=== PATIENT | female | born 1995 | race Hispanic/Latino ===

== ENCOUNTER 2019-01-26 01:42 | Emergency (ER) | payer OTHER ==
[~2019-01-26] VITALS: Ht 175.3 cm; Wt 80.7 kg
[2019-01-26 02:32] LABS: BASO % 0.3 % (0.0-1.0); EOS % 0.1 % (0.0-3.0); HEMATOCRIT 33.8 % (36.0-47.0); HEMOGLOBIN 11.4 g/dl (12.0-15.5); LYMPH % 6.7 % (24.0-44.0); MEAN CORPUSCULAR HGB CONC 33.7 g/dl (32.0-36.5); MONO # 0.4 10^3/uL (0.0-0.8); MONO % 2.7 % (0.0-5.0); NEUTROPHILS # 13.1 10^3/uL (1.8-7.7); NEUTROPHILS % 89.9 % (36.0-66.0); PLATELET COUNT, AUTOMATED 277 10^3/uL (150-450); RED BLOOD COUNT 3.93 10^6/uL (4.00-5.40); WHITE BLOOD COUNT 14.6 10^3/uL (4.0-10.0)
[2019-01-26 02:57] LABS: ALBUMIN 3.9 GM/DL (3.2-5.2); ALT/SGPT 17 U/L (12-78); BILIRUBIN,DIRECT < 0.1 MG/DL (0.0-0.2); BILIRUBIN,TOTAL 0.3 MG/DL (0.2-1.0); BLOOD UREA NITROGEN 13 MG/DL (7-18); CALCIUM LEVEL 8.7 MG/DL (8.5-10.1); CARBON DIOXIDE LEVEL 22 MEQ/L (21-32); CHLORIDE LEVEL 107 MEQ/L (98-107); CREATININE FOR GFR 0.72 MG/DL (0.55-1.30); GLOMERULAR FILTRATION RATE > 60.0 (>60); GLUCOSE, FASTING 142 MG/DL (70-100); LIPASE 133 U/L (73-393); SODIUM LEVEL 138 MEQ/L (136-145); TOTAL PROTEIN 7.6 GM/DL (6.4-8.2)
[2019-01-26 03:20] LABS: HCG, SERUM QUALITATIVE POSITIVE (NEGATIVE)
[2019-01-26] MEDS: MORPHINE 4 MG/ML 1ML VIAL/SYRINGE (J2270) IV PRN ×2 (03:28→03:59)
[2019-01-26] MEDS ORDERED: ONDANSETRON 4MG/2ML VIAL (J2405) IV ONE (03:30)
[2019-01-26 04:05] LABS: HCG, SERUM QUANTITATIVE 365 MIU/ML
--- NOTE | 2019-01-26 07:28 | REPVR ---
EXAM: US Duplex Artery or Vein of the Abdominal and/or Reproductive Organs, Limited Ovaries EXAM DATE/TIME: 01/26/2019 5:13 AM CLINICAL HISTORY: 23 years old, female; complicated by abdominal or pelvic pain; Right upper quadrant; First trimester; Gestational age or lmp: 4wks; ; Additional info: Right sided abd pain, pos TECHNIQUE: Imaging protocol: Real-time duplex ultrasound scan of the arterial or venous flow with victoria scale, color Doppler flow and spectral waveform analysis. Limited duplex exam focused on the ovaries. Duplex exam was performed to evaluate for ovarian torsion or mass. COMPARISON: GALLBLADDER US 01/26/2019 4:45 AM FINDINGS: Right adnexa: Normal duplex of the ovary. Normal Doppler waveforms and color flow. RI 0.53. No evidence of ovarian torsion. Left adnexa: Normal duplex of the ovary. Normal Doppler waveforms and color flow. RI 0.59. No evidence of ovarian torsion. IMPRESSION: Normal duplex of the ovaries. No evidence of ovarian torsion. EXAM: US First Trimester, Transabdominal and US , Transvaginal EXAM DATE/TIME: 01/26/2019 5:13 AM CLINICAL HISTORY: 23 years old, female; complicated by abdominal or pelvic pain; Right upper quadrant; First trimester; Gestational age or lmp: 4wks; ; Additional info: Right sided abd pain, pos TECHNIQUE: Imaging protocol: Real-time transabdominal obstetrical ultrasound of the maternal pelvis and a first trimester , less than 14 weeks 0 days, with image documentation. Transvaginal imaging was used for better evaluation of the fetus and adnexa. COMPARISON: GALLBLADDER US 01/26/2019 4:45 AM FINDINGS: GESTATION: Gestation: No evidence of intrauterine . MATERNAL: Uterus: The uterus is normal in size, shape and echotexture measuring 8.8 x 5.4 x 7.4 cm. The endometrium demonstrates decidual reaction measuring 2.2 cm in thickness. Cervix: Unremarkable. Right adnexa: The right ovary measures 4.5 x 2.8 x 2.7 cm with a possible corpus luteum as well as few small follicles. There is vascular flow present within the right ovary. No adnexal masses. Left adnexa: The left ovary measures 3.0 x 2.3 x 1.8 cm and is unremarkable in appearance containing a few small follicles. There is vascular flow present within the left ovary. No adnexal masses. Intraperitoneal: Trace free fluid which may be physiologic. IMPRESSION: 1. No evidence of IUP. Differential considerations include very early IUP which is not yet seen sonographically or failed . Ectopic cannot be entirely excluded, however, no adnexal masses are identified. Recommend clinical correlation as well as correlation with serial beta hCG and short term followup ultrasound. 2. Trace free fluid within the cul-de-sac. Findings were discussed with Dr Burns at 01/26/2019 7:17 AM EDT. Electronically signed by: Mukesh Buckner On 01/26/2019 07:27:13 AM
--- NOTE | 2019-01-26 07:36 | REPVR ---
EXAM: US Abdomen Limited, Right Upper Quadrant EXAM DATE/TIME: 01/26/2019 5:13 AM CLINICAL HISTORY: 23 years old, female; Abdominal pain; Acute; ; Additional info: Ruq abd pain TECHNIQUE: Imaging protocol: Real-time ultrasound of the abdomen with image documentation. Examination was focused on the right upper quadrant. COMPARISON: No relevant prior studies available. FINDINGS: Liver: Normal. No masses. Gallbladder: The gallbladder is distended measuring 12.2 x 3.5 cm. There are multiple gallstones within the gallbladder. No evidence of gallbladder wall thickening or pericholecystic fluid. The patient is reportedly tender over the gallbladder. Common bile duct: Bile ducts are normal in caliber. CBD 4.2 mm. On image 61, there is a questionable echogenic focus within the distal common bile duct which may represent choledocholithiasis. Pancreas: Visualized pancreas is unremarkable. Right kidney: The right kidney measures 10.6 cm in length and is unremarkable. Intraperitoneal space: No evidence of free fluid. IMPRESSION: 1. Gallbladder distention with evidence of cholelithiasis. Reported tenderness over the gallbladder. No significant gallbladder wall thickening. 2. No evidence of biliary duct dilatation, however, there is a questionable echogenic focus within the distal CBD which may represent choledocholithiasis. Findings were discussed with Dr Burns at 01/26/2019 7:17 AM EDT. Electronically signed by: Mukesh Buckner On 01/26/2019 07:36:15 AM
[2019-01-26 08:21] LABS: BASO % 0.1 % (0.0-1.0); HEMATOCRIT 33.7 % (36.0-47.0); HEMOGLOBIN 11.6 g/dl (12.0-15.5); LYMPH # 0.6 10^3/uL (1.5-6.5); LYMPH % 4.8 % (24.0-44.0); MEAN CORPUSCULAR HEMOGLOBIN 29.4 pg (27.0-33.0); MEAN CORPUSCULAR HGB CONC 34.4 g/dl (32.0-36.5); MEAN CORPUSCULAR VOLUME 85.3 fl (80.0-96.0); MONO # 0.3 10^3/uL (0.0-0.8); MONO % 2.3 % (0.0-5.0); NEUTROPHILS % 92.4 % (36.0-66.0); PLATELET COUNT, AUTOMATED 291 10^3/uL (150-450); RED BLOOD COUNT 3.95 10^6/uL (4.00-5.40)
[2019-01-26 08:47] LABS: ALBUMIN 3.9 GM/DL (3.2-5.2); BILIRUBIN,DIRECT 0.1 MG/DL (0.0-0.2); BILIRUBIN,TOTAL 0.4 MG/DL (0.2-1.0); TOTAL PROTEIN 8.2 GM/DL (6.4-8.2)
[2019-01-26] MEDS ORDERED: AUGM875T28 PO (09:13)
[2019-01-26 09:15] VITALS: BP 100/60
--- NOTE | 2019-02-01 14:34 | ED PDOC ---
Post-Departure Follow-Up bianca glez and christal faxed formal report of miko us for fu Annika Workman MD Feb 01, 2019 14:34
== END 2019-01-26 09:29 | disposition home or self-care (01) ==
LOC: M ED 01:42
DX: K80.20 Calculus of gallbladder without cholecystitis without obstruction (principal); Z3A.01 Less than 8 weeks gestation of pregnancy; Z87.891 Personal history of nicotine dependence
CPT/HCPCS: 76705; 76801; 76817; 80048; 80076; 81001; 83690; 84702; 84703; 85025; 87086; 93976; 96374; 96375; 99284; J2270; J2405